=== PATIENT | female | born 1985 | race Caucasian/White ===

== ENCOUNTER 2018-09-11 19:48 | Emergency (ER) | payer MEDICAID ==
[~2018-09-11] VITALS: Ht 157.5 cm; Wt 66.7 kg
[2018-09-11 20:48] VITALS: BP 132/95; Ht 157.5 cm; Wt 66.7 kg
== END 2018-09-11 21:30 | disposition home or self-care (01) ==
LOC: ED 19:48
DX: J10.1 Influenza due to other identified influenza virus with other respiratory manifestations (principal)
CPT/HCPCS: 87804